=== PATIENT | female | born 1975 | race African-American/Black ===

== ENCOUNTER 2017-06-09 09:46 | Emergency (ER) | payer OTHER ==
[~2017-06-09] VITALS: Ht 152.4 cm; Wt 60.8 kg
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
== END 2017-06-09 13:47 | disposition home or self-care (01) ==
LOC: CED 09:46
DX: S09.90XA Unspecified injury of head, initial encounter (principal); S43.402A Unspecified sprain of left shoulder joint, initial encounter; S53.402A Unspecified sprain of left elbow, initial encounter; Z88.2 Allergy status to sulfonamides; V89.2XXA Person injured in unspecified motor-vehicle accident, traffic, initial encounter; Y92.410 Unspecified street and highway as the place of occurrence of the external cause
CPT/HCPCS: 70450; 71020; 72125; 73030; 73070; 73562; 93971; 99284